=== PATIENT | male | born 1945 | race Hispanic/Latino ===

== ENCOUNTER 2018-01-13 06:01 | Emergency (ER) | payer OTHER, MEDICARE ==
[2018-01-13 07:53] LABS: BASOPHILS % (AUTO) 0.2 % (0.0-5.0); HEMATOCRIT 46.4 % (42-54); LYMPHOCYTES % (AUTO) 19.7 % (21.0-51.0); MEAN CORPUSCULAR HEMOGLOBIN 30.8 pg (27.0-33.0); MEAN CORPUSCULAR HGB CONC 33.6 g/dL (32.0-36.0); MEAN CORPUSCULAR VOLUME 91.8 fL (79-99); MONOCYTES % (AUTO) 5.8 % (3.0-13.0); NEUTROPHILS % (AUTO) 72.3 % (40.0-77.0); PLATELET COUNT (AUTO) 151 K/uL (130-400); RED BLOOD CELL COUNT(AUTO) 5.05 MIL/uL (4.50-6.20); WHITE BLOOD COUNT (AUTO) 6.8 K/uL (4.8-10.8)
[2018-01-13 08:11] LABS: CREATININE 0.6 mg/dL (0.5-1.5); POTASSIUM 4.5 mmol/L (3.5-5.1)
[2018-01-13 08:16] LABS: ALBUMIN 3.5 g/dL (3.5-5.0); BILIRUBIN,TOTAL 0.5 mg/dL (0.2-1.0); TOTAL PROTEIN, SERUM 6.8 g/dL (6.0-8.3)
[2018-01-13 08:41] LABS: APPEARANCE,URINE Clear (CLEAR); BILIRUBIN,URINE Negative (NEGATIVE); COLOR,URINE Yellow (YELLOW); GLUCOSE, URINE (UA) Negative (NEGATIVE); KETONES,URINE Negative (NEGATIVE); LEUKOCYTE ESTERASE ,URINE Negative (NEGATIVE); NITRATE,URINE Negative (NEGATIVE); OCCULT BLOOD,URINE Negative (NEGATIVE); PROTEIN,URINE Negative (NEGATIVE)
[2018-01-13 08:43] LABS: CREATINE KINASE MB 1.6 ng/mL (0.5-3.6); CREATINE KINASE, TOTAL 91 U/L (21-232); MYOGLOBIN 69 ng/mL (10-92); TROPONIN I < 0.04 ng/mL (0.00-0.06)
== END 2018-01-13 09:26 | disposition home or self-care (01) ==
LOC: EDH 06:01
DX: Z04.3 Encounter for examination and observation following other accident (principal); I25.10 Atherosclerotic heart disease of native coronary artery without angina pectoris; E11.9 Type 2 diabetes mellitus without complications; K21.9 Gastro-esophageal reflux disease without esophagitis; E78.5 Hyperlipidemia, unspecified; Z86.73 Personal history of transient ischemic attack (TIA), and cerebral infarction without residual deficits; W01.0XXA Fall on same level from slipping, tripping and stumbling without subsequent striking against object, initial encounter; Y93.01 Activity, walking, marching and hiking; Y92.098 Other place in other non-institutional residence as the place of occurrence of the external cause; Y99.8 Other external cause status
CPT/HCPCS: 36415; 70450; 72125; 80053; 81003; 82550; 82553; 83874; 84484; 85025; 93005

== ENCOUNTER → 2018-09-11 | Outpatient (CLI) | payer OTHER, MEDICARE ==
[~2018-09-11] MED LIST: ACET-2247 PO; ASPI-555 PO; FLUT16H NASAL; HYPR10DR OP; INS7030 SQ; LATA7.5D OU; LINA5TAB PO; LISI-617 PO; MECL-111 PO; METF-446 PO; SIMV40TA59 PO; TAMS0.4C32 PO
== END | disposition home or self-care (01) ==
LOC: RAH 10:30
PROVIDERS: ATTEND Internal Medicine
DX: K21.9 Gastro-esophageal reflux disease without esophagitis (principal); R13.10 Dysphagia, unspecified
CPT/HCPCS: G8996; G8997; G8998; 74230; 92611

== ENCOUNTER 2019-08-22 17:16 | Inpatient (IN) | payer OTHER, MEDICARE ==
[~2019-08-22] VITALS: Ht 162.6 cm; Wt 69.4 kg
[~2019-08-22 17:16] MED LIST changes: +ACET-2247 PEG; -ACET-2247 PO; -ASPI-555 PO; +FAMO20TA8 PO; +FLUT16H EN; -FLUT16H NASAL; -HYPR10DR OP; -INS7030 SQ; +IPRA3AMP24 IH; +LEVO250T59 PEG; +LINA5TAB PEG; -LINA5TAB PO; +LISI-617 PEG; -LISI-617 PO; +MECL-111 PEG; -MECL-111 PO; +METF-446 PEG; -METF-446 PO; +MOM30 PEG; +PANT40SU PEG; +PSYL660P17 PEG; +SIMV40TA59 PEG; -SIMV40TA59 PO; +THIA100T75 PEG; +UMEC1DIS IH; +[UNRECOGNIZED DRUG - CODE] OU
[2019-08-22 17:45] LABS: APPEARANCE,URINE Clear (CLEAR); BILIRUBIN,URINE Negative (NEGATIVE); COLOR,URINE Yellow (YELLOW); GLUCOSE, URINE (UA) 250 mg/dL (NEGATIVE); KETONES,URINE Negative (NEGATIVE); LEUKOCYTE ESTERASE ,URINE Negative (NEGATIVE); NITRATE,URINE Negative (NEGATIVE); OCCULT BLOOD,URINE Negative (NEGATIVE); PROTEIN,URINE Negative (NEGATIVE)
[2019-08-22 18:21] LABS: BASOPHILS % (AUTO) 0.5 % (0.0-5.0); EOSINOPHILS % (AUTO) 4.2 % (0.0-8.0); HEMATOCRIT 40.6 % (42-54); LYMPHOCYTES % (AUTO) 19.9 % (21.0-51.0); MEAN CORPUSCULAR HEMOGLOBIN 31.5 pg (27.0-33.0); MEAN CORPUSCULAR HGB CONC 33.6 g/dL (32.0-36.0); MEAN CORPUSCULAR VOLUME 93.5 fL (79-99); MONOCYTES % (AUTO) 8.2 % (3.0-13.0); NEUTROPHILS % (AUTO) 67.2 % (40.0-77.0); NUCLEATED RED BLOOD CELLS 0.1 % (0.0-0.19); PLATELET COUNT (AUTO) 171 K/uL (130-400); RED BLOOD CELL COUNT(AUTO) 4.34 MIL/uL (4.50-6.20); RED CELL DISTRIBUTION WIDTH 13.1 % (11.0-15.5); WHITE BLOOD COUNT (AUTO) 5.4 K/uL (4.8-10.8)
[2019-08-22 18:35] LABS: INR 0.94 (0.85-1.15); PARTIAL THROMBOPLASTIN TIME 25.5 SEC (26.3-35.5); PROTHROMBIN TIME 9.9 SEC (9.6-11.6)
[2019-08-22 18:37] LABS: CREATININE 0.6 mg/dL (0.5-1.5); POTASSIUM 4.7 mmol/L (3.5-5.1)
[2019-08-22 18:39] LABS: ALBUMIN 3.4 g/dL (3.5-5.0); BILIRUBIN,TOTAL 0.4 mg/dL (0.2-1.0); TOTAL PROTEIN, SERUM 6.9 g/dL (6.0-8.3)
[2019-08-22 19:30] LABS: ABG OXYGEN SATURATION 89.1 % (95.0-99.0); ABG PCO2 90 mmHg (35-48)
[2019-08-22] MEDS ORDERED: ZOSYN 3.375GM+NS 50ML 50 ML IV ONE (19:55)
[2019-08-22] MEDS ORDERED: VANCOMYCIN 1GM+NS 250ML 250 ML IV ONE ×2 (19:55)
[2019-08-22] MEDS ORDERED: GLUCAGON 1MG KIT 1 MG ML IM PRN (20:45)
[2019-08-22] MEDS ORDERED: DEXTROSE 50%-WATER 50 ML DISP.SYRIN IV PRN (20:45)
[2019-08-22] MEDS: INSULIN R PO SS1 SQ SCH (21:00)
[2019-08-23] VITALS: BP 119/64
[2019-08-23 04:00] VITALS: BP 106/64
[2019-08-23 04:29] LABS: MEAN CORPUSCULAR HEMOGLOBIN 31.7 pg (27.0-33.0); MEAN CORPUSCULAR HGB CONC 33.6 g/dL (32.0-36.0); MEAN CORPUSCULAR VOLUME 94.5 fL (79-99); NUCLEATED RED BLOOD CELLS 0.1 % (0.0-0.19); PLATELET COUNT (AUTO) 149 K/uL (130-400); RED BLOOD CELL COUNT(AUTO) 4.02 MIL/uL (4.50-6.20); RED CELL DISTRIBUTION WIDTH 13.1 % (11.0-15.5); WHITE BLOOD COUNT (AUTO) 5.2 K/uL (4.8-10.8)
[2019-08-23 04:40] LABS: ALBUMIN 2.9 g/dL (3.5-5.0); BILIRUBIN,TOTAL 0.3 mg/dL (0.2-1.0); CREATININE 0.6 mg/dL (0.5-1.5); MAGNESIUM 1.8 mg/dL (1.80-2.40); POTASSIUM 4.6 mmol/L (3.5-5.1); TOTAL PROTEIN, SERUM 6.2 g/dL (6.0-8.3)
[2019-08-23 05:05] LABS: ABG HCO3 44.1 mmol/L (21.0-28.0); ABG PCO2 83 mmHg (35-48)
--- NOTE | 2019-08-23 05:25 | NUR ---
PATIENT UPDATE Admitted a 74 yr old male from the [facility] for copd exacerbation, respiratory failure with resp and metabolic acidosis, received from er with the bipap on 12/07 with the rate at 18 (pCo2 at 90) at 40% fio2 from er last night. Repeat abg done this am with pH AT 7.345 WITH THE Pco2 still elevated at 82.6, call placed to Tiarra Castillo [facility] MANAGER to update with latest abg result.
--- NOTE | 2019-08-23 05:50 | NUR ---
FOLLOW UP CALL No response received from the 1st call, answering service called again. Ms. Castillo was made aware of the latest ABG result and stated that we will keep the bipap at the same setting given the latest abg result and ordered the ct scan of the chest which could not be done while the pt is on the bipap. Stated that the MD rounding this am will decide about the changes in the bipap setting.
[2019-08-23] MEDS: INSULIN R PO SS1 SQ SCH ×4 (07:30→21:00)
[2019-08-23 08:00] VITALS: BP 113/63
[2019-08-23] MEDS: ENOXAPARIN SODIUM 30 MG/0.3 ML SQ SCH (09:23)
[2019-08-23] MEDS: DiphenhydrAMINE HCL 25 MG/10 ML ELIXIR UDCUP PO PRN ×2 (09:23→22:26)
[2019-08-23] MEDS ORDERED: ONDANSETRON HCL 4 MG/2 ML VIAL ONE (10:28)
[2019-08-23] MEDS ORDERED: PROPOFOL 10 MG/ML 20ML VIAL IV ONE (10:28)
[2019-08-23] MEDS ORDERED: LIDOCAINE PF 2% 5ML ABBOJECT ONE (10:28)
[2019-08-23] MEDS ORDERED: ROCURONIUM 10MG/1ML SYR 10 MG/ML ML ONE (10:29)
[2019-08-23 11:21] LABS: ABG BASE EXCESS 11.1 mmol/L (-2.0-3.0); ABG HCO3 40.7 mmol/L (21.0-28.0); ABG OXYGEN SATURATION 89.4 % (95.0-99.0); ABG PCO2 78 mmHg (35-48)
[2019-08-23 12:00] VITALS: BP 121/74
[2019-08-23] MEDS ORDERED: PANTOPRAZOLE SODIUM 40 MG TABLET.DR PO SCH (12:30)
[2019-08-23] MEDS ORDERED: ACETAMINOPHEN 325 MG TAB PO PRN (12:30)
--- NOTE | 2019-08-23 12:33 | NUR ---
Nutrition Intervention: Nutrition screen due to pt. on Tube feedings. Pt. on PEG TF with TwoCal HN 6 cans/day. Current TF order provides 2850kcal, 119gm Pro, 311gm CHO and 996ml water daily. Current TF exceeds pt's nutritional needs. Labs reviewed(Alb 2.9, BG 263). LBM: Not available. BMI: 26.3, overweight. Recommendations: 1) Rec. PEG TF with Glucerna 1.5- 5 cans daily as follows: 8am- 1.5 cans, 12pm- 1 can, 4pm- 1 can and 8pm 1.5 cans. Will provide 1780kcal, 98gm Pro, 158gm CHO and 900ml water daily. 2) Flush with 90ml free water before and after every feeding. 3) Continue to monitor pt's nutritional status and TF tolerance. 4) Consult RD as nutrition concerns arise. Addendum: 08/23/19 at [address] Amended: Links added.
--- NOTE | 2019-08-23 13:38 | NUR ---
DCP CM met with pt currently unable to answer questions appropriately, called son on facesheet, discussed dc plans. 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 Pt has walker, wheelchair, provider at home. Son agreeable for pt to return to [facility] once stable, telephone consent obtained DANYA for [facility]. DC plan to SNF once stable. CM to cont to follow up. Addendum: 08/23/19 at 1340 by ITA CARROLL LVN CM Amended: Links added.
[2019-08-23 16:00] VITALS: BP 119/75
--- NOTE | 2019-08-23 16:32 | NUR ---
CM Note: [facility] reacceptance Spoke to Dawn w/[facility], pt is a shelter residence, does not need new pasrr. Pt has reacceptance. Received clinicals. Pt will need EMS transport once dc. Primary nurse aware. CM to cont to follow up.
[2019-08-23 20:00] VITALS: BP 144/83
[2019-08-23] MEDS: LATANOPROST 2.5 ML DROPS OU SCH (22:16)
[2019-08-23] MEDS: FINASTERIDE 5 MG TABLET PO SCH (22:18)
[2019-08-23] MEDS: INSULIN GLARGINE 100 UNITS/ML 10 ML VIAL SQ SCH (22:21)
[2019-08-24] VITALS (7 sets, daily range): BP systolic 109–149; BP diastolic 66–91
[2019-08-24 03:48] LABS: ABG BASE EXCESS 13.2 mmol/L (-2.0-3.0); ABG HCO3 43.8 mmol/L (21.0-28.0); ABG OXYGEN SATURATION 93.4 % (95.0-99.0); ABG PCO2 87 mmHg (35-48)
[2019-08-24 05:56] LABS: HEMATOCRIT 38.9 % (42-54); MEAN CORPUSCULAR HEMOGLOBIN 31.4 pg (27.0-33.0); MEAN CORPUSCULAR HGB CONC 33.7 g/dL (32.0-36.0); MEAN CORPUSCULAR VOLUME 93.2 fL (79-99); PLATELET COUNT (AUTO) 174 K/uL (130-400); RED BLOOD CELL COUNT(AUTO) 4.17 MIL/uL (4.50-6.20); RED CELL DISTRIBUTION WIDTH 13.1 % (11.0-15.5); WHITE BLOOD COUNT (AUTO) 5.6 K/uL (4.8-10.8)
[2019-08-24] MEDS: INSULIN R PO SS1 SQ SCH ×4 (06:06→20:59)
[2019-08-24] MEDS: IPRATROPIUM/ALBUTEROL SULFATE 3 ML SOLUTION IH PRN ×4 (06:21→23:26)
[2019-08-24 07:25] LABS: CREATININE 0.6 mg/dL (0.5-1.5); POTASSIUM 4.2 mmol/L (3.5-5.1)
[2019-08-24] MEDS: METFORMIN HCL 500 MG TAB.SR.24H PO SCH (08:00)
--- NOTE | 2019-08-24 08:00 | NUR ---
PATIENT UPDATE Pt's blood gas taken this am, with the pCO2 up at 87 this am. Pt didn't keep the bipap mask on overnight, tends to take it off most of the time, RT asked to provide for a better fitting bipap mask. [place] [facility] provided a new bipap mask for the pt, so far pt had been keeping it on since he applied it at 0500, will continue to monitor.
[2019-08-24] MEDS: ASPIRIN 81MG TAB.CHEW PO SCH (09:00)
[2019-08-24] MEDS: PSYLLIUM SEED 1 EACH PACKET PO SCH (09:00)
[2019-08-24] MEDS: FLUOXETINE HCL 10 MG CAPSULE PO SCH (09:00)
[2019-08-24] MEDS: THIAMINE HCL 100 MG TABLET PO SCH (09:00)
[2019-08-24] MEDS: LISINOPRIL 5 MG TABLET PO SCH (09:00)
[2019-08-24] MEDS ORDERED: VANCOMYCIN PROTOCOL PER PHARMACY IV SCH (10:45)
[2019-08-24] MEDS: ENOXAPARIN SODIUM 30 MG/0.3 ML SQ SCH (13:22)
[2019-08-24] MEDS: VANCOMYCIN 1GM+NS 250ML 250 ML IV SCH ×2 (13:22→23:11)
[2019-08-24] MEDS ORDERED: LACTULOSE 20 GM/30 ML UDCUP ONE (15:03)
[2019-08-24] MEDS: LACTULOSE 20 GM/30 ML UDCUP PO PRN ×2 (15:24→23:11)
[2019-08-24] MEDS: DiphenhydrAMINE HCL 25 MG/10 ML ELIXIR UDCUP PO PRN (16:49)
[2019-08-24 20:00] LABS: ABG BASE EXCESS 10.1 mmol/L (-2.0-3.0); ABG HCO3 38.5 mmol/L (21.0-28.0); ABG OXYGEN SATURATION 94.7 % (95.0-99.0); ABG PCO2 68 mmHg (35-48)
[2019-08-24] MEDS: FINASTERIDE 5 MG TABLET PO SCH (20:59)
[2019-08-24] MEDS: LATANOPROST 2.5 ML DROPS OU SCH (20:59)
[2019-08-24] MEDS: INSULIN GLARGINE 100 UNITS/ML 10 ML VIAL SQ SCH (21:00)
[2019-08-25 04:02] VITALS: BP 111/75
[2019-08-25 06:28] LABS: HEMATOCRIT 39.4 % (42-54); MEAN CORPUSCULAR HEMOGLOBIN 31.5 pg (27.0-33.0); MEAN CORPUSCULAR HGB CONC 33.5 g/dL (32.0-36.0); MEAN CORPUSCULAR VOLUME 93.9 fL (79-99); NUCLEATED RED BLOOD CELLS 0.1 % (0.0-0.19); PLATELET COUNT (AUTO) 163 K/uL (130-400); RED CELL DISTRIBUTION WIDTH 13.2 % (11.0-15.5); WHITE BLOOD COUNT (AUTO) 5.5 K/uL (4.8-10.8)
[2019-08-25] MEDS: IPRATROPIUM/ALBUTEROL SULFATE 3 ML SOLUTION IH PRN ×4 (06:32→23:15)
[2019-08-25] MEDS: INSULIN R PO SS1 SQ SCH ×3 (06:39→16:30)
[2019-08-25 07:06] LABS: CREATININE 0.5 mg/dL (0.5-1.5); POTASSIUM 4.1 mmol/L (3.5-5.1)
[2019-08-25 07:20] VITALS: BP 100/62
--- NOTE | 2019-08-25 07:57 | NUR ---
PATIENT UPDATE pCO2 with the 1999 abg at 68, bipap setting at 16/4 rate of 18 with the fio2 at 40%. Patient now with the sitter, able to keep the bipap mask on for a longer period of time. Was given lactulose last night and finally had a good bm at 0500 this am, peg tube feedings resumed as previously scheduled. Blood sugars within normal limits, lantus insulin scheduled last night held bec the feedings was put on hold until pt is to have a bowel movement which he had this am.
[2019-08-25 11:43] VITALS: BP 106/64
[2019-08-25] MEDS: FLUOXETINE HCL 10 MG CAPSULE PO SCH (14:12)
[2019-08-25] MEDS: ASPIRIN 81MG TAB.CHEW PO SCH (14:12)
[2019-08-25] MEDS: LISINOPRIL 5 MG TABLET PO SCH (14:13)
[2019-08-25] MEDS: METFORMIN HCL 500 MG TAB.SR.24H PO SCH (14:14)
[2019-08-25] MEDS: THIAMINE HCL 100 MG TABLET PO SCH (14:15)
[2019-08-25] MEDS: VANCOMYCIN 1GM+NS 250ML 250 ML IV SCH ×2 (14:16→23:54)
[2019-08-25] MEDS: ENOXAPARIN SODIUM 30 MG/0.3 ML SQ SCH (14:16)
[2019-08-25] MEDS: PSYLLIUM SEED 1 EACH PACKET PO SCH (14:22)
[2019-08-25] MEDS ORDERED: ARTIFICAL TEARS SOL 15 ML OU PRN (16:15)
[2019-08-25] MEDS ORDERED: ARTIFICIAL TEARS 3.5 GM OINTMENT OU PRN (17:15)
[2019-08-25 19:00] VITALS: BP 138/74
[2019-08-25 23:00] VITALS: BP 103/69
[2019-08-25] MEDS: FINASTERIDE 5 MG TABLET PO SCH (23:54)
[2019-08-25] MEDS: LATANOPROST 2.5 ML DROPS OU SCH (23:54)
[2019-08-26] MEDS: INSULIN GLARGINE 100 UNITS/ML 10 ML VIAL SQ SCH ×2 (00:04→21:45)
[2019-08-26] MEDS: INSULIN R PO SS1 SQ SCH ×5 (00:05→21:46)
[2019-08-26 03:00] VITALS: BP 119/69
[2019-08-26 03:54] LABS: ABG BASE EXCESS 7.6 mmol/L (-2.0-3.0); ABG HCO3 36.1 mmol/L (21.0-28.0); ABG OXYGEN SATURATION 90.5 % (95.0-99.0); ABG PCO2 68 mmHg (35-48)
[2019-08-26 05:34] LABS: HEMATOCRIT 38.1 % (42-54); MEAN CORPUSCULAR HEMOGLOBIN 31.4 pg (27.0-33.0); MEAN CORPUSCULAR HGB CONC 33.7 g/dL (32.0-36.0); MEAN CORPUSCULAR VOLUME 93.3 fL (79-99); PLATELET COUNT (AUTO) 177 K/uL (130-400); RED BLOOD CELL COUNT(AUTO) 4.09 MIL/uL (4.50-6.20); RED CELL DISTRIBUTION WIDTH 13.4 % (11.0-15.5); WHITE BLOOD COUNT (AUTO) 5.6 K/uL (4.8-10.8)
[2019-08-26 05:50] LABS: CREATININE 0.5 mg/dL (0.5-1.5); POTASSIUM 4.1 mmol/L (3.5-5.1)
--- NOTE | 2019-08-26 06:15 | NUR ---
PATIENT REMOVED BIPAP CALLED RESPIRATORY TO REPLACE BIPAP. PT CURRENTLY ON NC 3 LPM SAT 96%. RESPIRATORY TO COME PLACE BIPAP ON PT.
[2019-08-26] MEDS: IPRATROPIUM/ALBUTEROL SULFATE 3 ML SOLUTION IH PRN ×4 (06:52→23:27)
[2019-08-26 08:00] VITALS: BP 120/71
[2019-08-26] MEDS ORDERED: VANCOMYCIN 2 GM in SODIUM CHLORIDE 0.9% 500ML 500 ML IV SCH (08:45)
--- NOTE | 2019-08-26 09:34 | NUR ---
RD UPDATE RD notification - TF Re-eval to modify Tube Feeding Schedule. 1) Rec. PEG TF with Glucerna 1.5- 5 cans daily as follows: 6am- 1.5 cans, 12pm- 1 can, 6pm- 1 can and 12am 1.5 cans. Will provide 1780kcal, 98gm Pro, 158gm CHO and 900ml water daily. 2) Flush with 90ml free water before and after every feeding. Discussed with RN to modify feeding schedule. Recommendations to be placed in Pt chart. RD to continue to monitor for TF tolerance. Please notify as additional nutrition concerns arise.
[2019-08-26] MEDS: METFORMIN HCL 500 MG TAB.SR.24H PO SCH (09:49)
[2019-08-26] MEDS: LISINOPRIL 5 MG TABLET PO SCH (09:49)
[2019-08-26] MEDS: ASPIRIN 81MG TAB.CHEW PO SCH (09:49)
[2019-08-26] MEDS: THIAMINE HCL 100 MG TABLET PO SCH (09:49)
[2019-08-26] MEDS: FLUOXETINE HCL 10 MG CAPSULE PO SCH (09:49)
[2019-08-26] MEDS: ENOXAPARIN SODIUM 30 MG/0.3 ML SQ SCH (09:50)
[2019-08-26] MEDS: PSYLLIUM SEED 1 EACH PACKET PO SCH (09:50)
--- NOTE | 2019-08-26 10:30 | NUR ---
[facility] MADE TO CATHY AVILA ON BIPAP, IS THAT A SKILLED NEED? SENT [facility], NO SNF ORDER AT THIS TIME Addendum: 08/26/19 at 1158 by RENZO WOLF RN CM Amended: Links added.
[2019-08-26 12:00] VITALS: BP 120/76
[2019-08-26 16:00] VITALS: BP 129/72
[2019-08-26 19:00] VITALS: BP 132/74
[2019-08-26] MEDS: CEFAZOLIN SODIUM 1 GM VIAL IVP SCH (19:40)
[2019-08-26] MEDS ORDERED: VANCOMYCIN 1GM+NS 250ML 250 ML IV SCH (21:00)
[2019-08-26] MEDS: FINASTERIDE 5 MG TABLET PO SCH (21:32)
[2019-08-26] MEDS: LATANOPROST 2.5 ML DROPS OU SCH (21:33)
[2019-08-26] MEDS: DiphenhydrAMINE HCL 25 MG/10 ML ELIXIR UDCUP PO PRN (21:33)
[2019-08-26 23:00] VITALS: BP 100/64
[2019-08-27 03:00] VITALS: BP 113/67
[2019-08-27] MEDS: CEFAZOLIN SODIUM 1 GM VIAL IVP SCH ×4 (03:23→22:55)
--- NOTE | 2019-08-27 05:19 | NUR ---
AM FINGERSTICK BLOOD GLUCOSE PATIENT'S AM GLUCOSE WAS 49
[2019-08-27] MEDS: INSULIN R PO SS1 SQ SCH ×2 (05:20→11:30)
[2019-08-27] MEDS: IPRATROPIUM/ALBUTEROL SULFATE 3 ML SOLUTION IH PRN (07:03)
[2019-08-27 08:00] VITALS: BP 113/66
[2019-08-27] MEDS: FLUOXETINE HCL 10 MG CAPSULE PO SCH (08:33)
[2019-08-27] MEDS: THIAMINE HCL 100 MG TABLET PO SCH (08:33)
[2019-08-27] MEDS: METFORMIN HCL 500 MG TAB.SR.24H PO SCH (08:33)
[2019-08-27] MEDS: LISINOPRIL 5 MG TABLET PO SCH (08:34)
[2019-08-27] MEDS: ASPIRIN 81MG TAB.CHEW PO SCH (08:34)
[2019-08-27] MEDS: PSYLLIUM SEED 1 EACH PACKET PO SCH (08:35)
[2019-08-27] MEDS: ENOXAPARIN SODIUM 30 MG/0.3 ML SQ SCH (08:35)
[2019-08-27 09:15] LABS: ABG BASE EXCESS 7.5 mmol/L (-2.0-3.0); ABG HCO3 36.1 mmol/L (21.0-28.0); ABG OXYGEN SATURATION 92.8 % (95.0-99.0); ABG PCO2 69 mmHg (35-48)
[2019-08-27] MEDS: IPRATROPIUM/ALBUTEROL SULFATE 3 ML SOLUTION IH SCH ×3 (11:09→23:14)
[2019-08-27 12:00] VITALS: BP 99/67
[2019-08-27] MEDS ORDERED: FUROSEMIDE 10 MG/ML 2ML VIAL IV SCH (14:30)
[2019-08-27] MEDS ORDERED: PHARMACY COMMUNICATION MISC SCH (14:45)
[2019-08-27 16:00] VITALS: BP 107/65
[2019-08-27] MEDS ORDERED: DEXTROSE 50%-WATER 50 ML DISP.SYRIN IV PRN (16:00)
[2019-08-27] MEDS ORDERED: GLUCAGON 1MG KIT 1 MG ML IM PRN (16:00)
--- NOTE | 2019-08-27 17:06 | NUR ---
DC PLAN REMAINS BACK TO SNF DISCUSSED BARRIERS TO DICHARGE W PRIMARY RN- ORDER FOR LASIX FROM [facility] DC TOMORROW IF PULMONARY CONGESTION RESOLVED
[2019-08-27] MEDS: INSULIN R NPO SSI SQ SCH ×2 (18:00→23:02)
[2019-08-27 19:00] VITALS: BP 133/76
[2019-08-27] MEDS: PREDNISONE 20 MG TABLET PO SCH (20:06)
[2019-08-27] MEDS: FINASTERIDE 5 MG TABLET PO SCH (20:06)
[2019-08-27] MEDS: LATANOPROST 2.5 ML DROPS OU SCH (20:07)
[2019-08-27 23:52] VITALS: BP 92/58
[2019-08-28 04:00] VITALS: BP 124/78
[2019-08-28] MEDS: INSULIN R NPO SSI SQ SCH ×3 (05:25→23:50)
[2019-08-28 06:05] LABS: BASOPHILS % (AUTO) 0.4 % (0.0-5.0); EOSINOPHILS % (AUTO) 4.7 % (0.0-8.0); HEMATOCRIT 37.7 % (42-54); LYMPHOCYTES % (AUTO) 19.3 % (21.0-51.0); MEAN CORPUSCULAR HEMOGLOBIN 31.6 pg (27.0-33.0); MEAN CORPUSCULAR HGB CONC 34.3 g/dL (32.0-36.0); MEAN CORPUSCULAR VOLUME 92.3 fL (79-99); NEUTROPHILS % (AUTO) 66.6 % (40.0-77.0); PLATELET COUNT (AUTO) 174 K/uL (130-400); RED BLOOD CELL COUNT(AUTO) 4.09 MIL/uL (4.50-6.20); RED CELL DISTRIBUTION WIDTH 13.2 % (11.0-15.5); WHITE BLOOD COUNT (AUTO) 5.4 K/uL (4.8-10.8)
[2019-08-28] MEDS: CEFAZOLIN SODIUM 1 GM VIAL IVP SCH ×3 (06:09→23:35)
[2019-08-28 06:13] LABS: CREATININE 0.6 mg/dL (0.5-1.5); POTASSIUM 3.8 mmol/L (3.5-5.1)
[2019-08-28] MEDS: IPRATROPIUM/ALBUTEROL SULFATE 3 ML SOLUTION IH SCH ×4 (06:33→23:12)
[2019-08-28 08:00] VITALS: BP 122/79
[2019-08-28] MEDS: METFORMIN HCL 500 MG TAB.SR.24H PO SCH (08:00)
[2019-08-28] MEDS: PREDNISONE 20 MG TABLET PO SCH ×2 (08:36→19:50)
[2019-08-28] MEDS: FUROSEMIDE 20 MG TABLET PO SCH (08:36)
[2019-08-28] MEDS: THIAMINE HCL 100 MG TABLET PO SCH (08:36)
[2019-08-28] MEDS: FLUOXETINE HCL 10 MG CAPSULE PO SCH (08:36)
[2019-08-28] MEDS: ASPIRIN 81MG TAB.CHEW PO SCH (08:36)
[2019-08-28] MEDS: PSYLLIUM SEED 1 EACH PACKET PO SCH (08:37)
[2019-08-28] MEDS: ENOXAPARIN SODIUM 30 MG/0.3 ML SQ SCH (08:37)
[2019-08-28] MEDS: LISINOPRIL 5 MG TABLET PO SCH (08:37)
[2019-08-28] MEDS: INSULIN GLARGINE 100 UNITS/ML 10 ML VIAL SQ SCH (08:39)
[2019-08-28 12:00] VITALS: BP 122/71
[2019-08-28 16:00] VITALS: BP 111/64
[2019-08-28 16:13] LABS: ABG BASE EXCESS 11.6 mmol/L (-2.0-3.0); ABG HCO3 38.6 mmol/L (21.0-28.0); ABG OXYGEN SATURATION 78.7 % (95.0-99.0); ABG PCO2 59 mmHg (35-48)
[2019-08-28 19:00] VITALS: BP 103/68
[2019-08-28] MEDS: FINASTERIDE 5 MG TABLET PO SCH (19:50)
[2019-08-28] MEDS: LATANOPROST 2.5 ML DROPS OU SCH (19:51)
[2019-08-28 23:00] VITALS: BP 119/60
[2019-08-29 03:00] VITALS: BP 126/71
[2019-08-29] MEDS: INSULIN R NPO SSI SQ SCH ×3 (05:05→17:37)
[2019-08-29 05:27] LABS: BASOPHILS % (AUTO) 0.6 % (0.0-5.0); EOSINOPHILS % (AUTO) 2.8 % (0.0-8.0); HEMATOCRIT 39.8 % (42-54); LYMPHOCYTES % (AUTO) 19.2 % (21.0-51.0); MEAN CORPUSCULAR HEMOGLOBIN 31.9 pg (27.0-33.0); MEAN CORPUSCULAR HGB CONC 34.4 g/dL (32.0-36.0); MEAN CORPUSCULAR VOLUME 92.9 fL (79-99); MONOCYTES % (AUTO) 9.2 % (3.0-13.0); NEUTROPHILS % (AUTO) 68.2 % (40.0-77.0); PLATELET COUNT (AUTO) 156 K/uL (130-400); RED BLOOD CELL COUNT(AUTO) 4.29 MIL/uL (4.50-6.20); RED CELL DISTRIBUTION WIDTH 13.3 % (11.0-15.5); WHITE BLOOD COUNT (AUTO) 6.6 K/uL (4.8-10.8)
[2019-08-29 05:37] LABS: INR 0.99 (0.85-1.15); PROTHROMBIN TIME 10.4 SEC (9.6-11.6)
[2019-08-29 05:42] LABS: CREATININE 0.6 mg/dL (0.5-1.5); MAGNESIUM 1.6 mg/dL (1.80-2.40); PHOSPHORUS 3.9 mg/dL (2.5-4.9); POTASSIUM 3.7 mmol/L (3.5-5.1)
[2019-08-29] MEDS: IPRATROPIUM/ALBUTEROL SULFATE 3 ML SOLUTION IH SCH ×3 (06:39→18:17)
[2019-08-29] MEDS: CEFAZOLIN SODIUM 1 GM VIAL IVP SCH ×2 (06:47→14:56)
[2019-08-29 08:16] VITALS: BP 105/67
[2019-08-29] MEDS: ASPIRIN 81MG TAB.CHEW PO SCH (08:39)
[2019-08-29] MEDS: FUROSEMIDE 20 MG TABLET PO SCH (08:40)
[2019-08-29] MEDS: METFORMIN HCL 500 MG TAB.SR.24H PO SCH (08:40)
[2019-08-29] MEDS: THIAMINE HCL 100 MG TABLET PO SCH (08:40)
[2019-08-29] MEDS: FLUOXETINE HCL 10 MG CAPSULE PO SCH (08:40)
[2019-08-29] MEDS: PREDNISONE 20 MG TABLET PO SCH (08:41)
[2019-08-29] MEDS: PSYLLIUM SEED 1 EACH PACKET PO SCH (08:41)
[2019-08-29] MEDS: LISINOPRIL 5 MG TABLET PO SCH (08:41)
[2019-08-29] MEDS: INSULIN GLARGINE 100 UNITS/ML 10 ML VIAL SQ SCH (09:05)
[2019-08-29] MEDS: ENOXAPARIN SODIUM 30 MG/0.3 ML SQ SCH (09:08)
[2019-08-29 11:53] VITALS: BP 100/59
[2019-08-29] MEDS ORDERED: MAGNESIUM 2GM PREMIX 50ML 50 ML IV ONE (15:15)
[2019-08-29] MEDS ORDERED: CEFA2PLA9 IV (15:29)
[2019-08-29 16:00] VITALS: BP 118/67
--- NOTE | 2019-08-29 16:04 | NUR ---
RD FOLLOW UP Pt tolerating Bolus Glucerna 1.5 feedings at 5 cans/day as per RN. Recommend to continue tube feedings. Pt remains on BIPAP as per EMR. Pt LBM 08/29/19. Pt monitored labs: Cl 98, CO2 41, BUN 21, Glu 121, Mg 1.60. RD to continue to monitor. Please notify as nutrition concerns arise. Thank you. Addendum: 08/29/19 at [address] Amended: Links added.
== END 2019-08-29 19:55 | DRG 70 ==
LOC: EDH 17:16 → EDHIP 19:57 → 3DH 21:09
PROVIDERS: ADMIT Internal Medicine Infectious Disease; ATTEND Internal Medicine Infectious Disease
PROC: 5A09357 Assistance with Respiratory Ventilation, Less than 24 Consecutive Hours, Continuous Positive Airway Pressure (ICD-10-PCS; principal; 2019-08-22)
PROC: 5A09357 Assistance with Respiratory Ventilation, Less than 24 Consecutive Hours, Continuous Positive Airway Pressure (ICD-10-PCS; 2019-08-22)
PROC: 5A09357 Assistance with Respiratory Ventilation, Less than 24 Consecutive Hours, Continuous Positive Airway Pressure (ICD-10-PCS; 2019-08-22)
PROC: 5A09357 Assistance with Respiratory Ventilation, Less than 24 Consecutive Hours, Continuous Positive Airway Pressure (ICD-10-PCS; 2019-08-22)
PROC: 5A09357 Assistance with Respiratory Ventilation, Less than 24 Consecutive Hours, Continuous Positive Airway Pressure (ICD-10-PCS; 2019-08-22)
PROC: 5A09357 Assistance with Respiratory Ventilation, Less than 24 Consecutive Hours, Continuous Positive Airway Pressure (ICD-10-PCS; 2019-08-22)
PROC: 02HV33Z Insertion of Infusion Device into Superior Vena Cava, Percutaneous Approach (ICD-10-PCS; 2019-08-29)
DX: G93.40 Encephalopathy, unspecified (principal); J96.21 Acute and chronic respiratory failure with hypoxia; J96.22 Acute and chronic respiratory failure with hypercapnia; R78.81 Bacteremia; J44.1 Chronic obstructive pulmonary disease with (acute) exacerbation; E11.22 Type 2 diabetes mellitus with diabetic chronic kidney disease; I12.9 Hypertensive chronic kidney disease with stage 1 through stage 4 chronic kidney disease, or unspecified chronic kidney disease; R13.12 Dysphagia, oropharyngeal phase; N18.9 Chronic kidney disease, unspecified; B95.7 Other staphylococcus as the cause of diseases classified elsewhere; B96.89 Other specified bacterial agents as the cause of diseases classified elsewhere; E11.649 Type 2 diabetes mellitus with hypoglycemia without coma; E66.9 Obesity, unspecified; E78.5 Hyperlipidemia, unspecified; F03.90 Unspecified dementia, unspecified severity, without behavioral disturbance, psychotic disturbance, mood disturbance, and anxiety; G47.30 Sleep apnea, unspecified; I25.10 Atherosclerotic heart disease of native coronary artery without angina pectoris; K21.9 Gastro-esophageal reflux disease without esophagitis; Z68.26 Body mass index [BMI] 26.0-26.9, adult; Z74.01 Bed confinement status; Z93.1 Gastrostomy status; Z91.19 Patient's noncompliance with other medical treatment and regimen; Z88.8 Allergy status to other drugs, medicaments and biological substances; Z86.73 Personal history of transient ischemic attack (TIA), and cerebral infarction without residual deficits; Z83.3 Family history of diabetes mellitus
CPT/HCPCS: 36415; 36600; 71045; 71250; 80048; 80053; 80202; 81003; 82550; 82803; 82948; 83605; 83735; 83880; 84100; 84484; 85025; 85027; 85610; 85730; 87040; 87077; 87186; 87804; 93005; 94640; 94660; 94664; C1894; G0378; J0690; J1650; J1815; J1940; J2001; J2405; J2543; J2704; J3370; J3475; J7040; J7070

== ENCOUNTER 2019-09-27 14:36 | Emergency (ER) | payer OTHER, MEDICARE ==
[~2019-09-27 14:36] MED LIST changes: +CEFA2PLA9 IV
[2019-09-27 15:24] LABS: BASOPHILS % (AUTO) 0.6 % (0.0-5.0); EOSINOPHILS % (AUTO) 0.7 % (0.0-8.0); HEMATOCRIT 38.1 % (42-54); LYMPHOCYTES % (AUTO) 6.5 % (21.0-51.0); MEAN CORPUSCULAR HEMOGLOBIN 31.1 pg (27.0-33.0); MEAN CORPUSCULAR HGB CONC 33.8 g/dL (32.0-36.0); MEAN CORPUSCULAR VOLUME 92.2 fL (79-99); MONOCYTES % (AUTO) 3.9 % (3.0-13.0); NEUTROPHILS % (AUTO) 88.3 % (40.0-77.0); PLATELET COUNT (AUTO) 184 K/uL (130-400); RED BLOOD CELL COUNT(AUTO) 4.14 MIL/uL (4.50-6.20); RED CELL DISTRIBUTION WIDTH 12.9 % (11.0-15.5); WHITE BLOOD COUNT (AUTO) 7.1 K/uL (4.8-10.8)
[2019-09-27 15:40] LABS: ALBUMIN 3.4 g/dL (3.5-5.0); BILIRUBIN,TOTAL 0.5 mg/dL (0.2-1.0); CREATININE 0.6 mg/dL (0.5-1.5); POTASSIUM 4.5 mmol/L (3.5-5.1); TOTAL PROTEIN, SERUM 6.9 g/dL (6.0-8.3)
[2019-09-27 16:41] LABS: ABG BASE EXCESS 15.9 mmol/L (-2.0-3.0); ABG HCO3 45.2 mmol/L (21.0-28.0); ABG OXYGEN SATURATION 84.9 % (95.0-99.0); ABG PCO2 76 mmHg (35-48)
[2019-09-27] MEDS ORDERED: IPRATROPIUM/ALBUTEROL SULFATE 3 ML SOLUTION IH ONE (20:01)
== END 2019-09-27 21:22 | disposition home or self-care (01) ==
LOC: EDH 14:36
DX: J44.9 Chronic obstructive pulmonary disease, unspecified (principal); I25.10 Atherosclerotic heart disease of native coronary artery without angina pectoris; E11.9 Type 2 diabetes mellitus without complications; K21.9 Gastro-esophageal reflux disease without esophagitis; E78.5 Hyperlipidemia, unspecified; Z88.8 Allergy status to other drugs, medicaments and biological substances
CPT/HCPCS: 36415; 36600; 71045; 80053; 82803; 85025; 94640